=== PATIENT | female | born 1970 | race Caucasian/White ===

== ENCOUNTER 2017-01-21 13:48 | Emergency (ER) | payer MEDICAID ==
[2017-01-21] MEDS ORDERED: ORPHENADRINE CITRATE 60MG/2ML VIAL IM ONE (14:12)
[2017-01-21] MEDS ORDERED: KETOROLAC 30 MG/ML VIAL IM ONE (14:12)
--- NOTE | 2017-01-21 14:17 | Emergency Department Record ---
History of Present Illness - General Chief Complaint: Back Pain/Injury Stated Complaint: BACK PAIN, AND DETAL PAIN Time Seen by Provider: 01/21/17 14:03 Source: Patient Mode of Arrival: Ambulatory Limitations: No limitations - History of Present Illness Initial Comments: The patient is here due to having L lower back pain for many years and now the pain has worsened over the last 2 days. She has taken Percocet in the past which did help the pain but is now out and is between family doctors so she is out of chronic pain medicines. The pain is sharp and aching and much worse with any movement and walking. She denies any leg numbness, tingling, or weakness and also has no bowel or bladder issues. The pain does intermittently radiate down the back of the L leg but that has bee a chronic issue. The patient does state she has received facet blocks in the past. MD Complaint: Back pain Onset/Timin -: Days(s) Place: Home Radiation: Left leg Quality: Sharp Consistency: Constant Context: Other Associated Symptoms: Difficulty walking, Other Treatments Prior to Arrival: Other Treatment Prior to Arrival Comment:: seizure meds - Related Data Home Medications Medication Instructions Recorded Confirmed Last Taken Acyclovir 400 mg PO ASDIR 01/21/17 01/21/17 01/20/17 Albuterol Sulfate [Ventolin Hfa] 200 puff INH ASDIR 01/21/17 01/21/17 01/20/17 Cholecalciferol (Vitamin D3) 2,000 unit PO DAILY 01/21/17 01/21/17 01/19/17 [Vitamin D3] Cyclobenzaprine HCl [Flexeril] 5 mg PO TID 01/21/17 01/21/17 01/20/17 Diazepam [Valium] 5 mg PO DAILY 01/21/17 01/21/17 01/20/17 Montelukast Sodium [Singulair] 10 mg PO QHS 01/21/17 01/21/17 01/21/17 Propranolol HCl 80 mg PO DAILY 01/21/17 01/21/17 01/20/17 Venlafaxine HCl [Effexor] 75 mg PO DAILY 01/21/17 01/21/17 01/21/17 Zonisamide [Zonegran] 100 mg PO DAILY 01/21/17 01/21/17 01/21/17 Previous Rx's Medication Instructions Recorded Naproxen [Naprosyn] 250 mg PO BID #14 tablet 01/21/17 Allergies Allergy/AdvReac Type Severity Reaction Status Date / Time No Known Drug Allergies Allergy Verified 01/21/17 14:01 Travel Screening - Travel/Exposure Within Last 30 Days Have you traveled within the last 30 days?: No - Travel/Exposure Within Last Year Have you traveled outside the [place] in the last year?: No - Additonal Travel Details Have you been exposed to anyone with a communicable illness?: No - Travel Symptoms Symptom Screening: None Review of Systems Constitutional: Denies: Chills, Fever Eyes: Denies: Eye discharge ENT: Denies: Congestion Respiratory: Denies: Cough, Dyspnea Past Medical History - SOCIAL HISTORY Smoking Status: Current every day smoker Alcohol Use: None Drug Use: Occasional Drug Use Detail:: Marijuana - RESPIRATORY Hx Respiratory Disorders: Yes Hx Asthma: Yes - CARDIOVASCULAR Hx Cardio Disorders: No - NEURO Hx Neuro Disorders: Yes Hx Headaches: Yes Hx Seizures: Yes - GI Hx GI Disorders: Yes Hx Hiatal Hernia: Yes - Hx Genitourinary Disorders: No - ENDOCRINE Hx Endocrine Disorders: No - MUSCULOSKELETAL Hx Musculoskeletal Disorders: Yes - PSYCH Hx Psych Problems: Yes Hx Anxiety: Yes Hx Depression: Yes - HEMATOLOGY/ONCOLOGY Hx Hematology/Oncology Disorders: No Family Medical History Any Significant Family History?: No Physical Exam - General General Appearance: Alert, Oriented x3, Cooperative, No acute distress - Head Head exam: Atraumatic, Normocephalic, Normal inspection - Eye Eye exam: Normal appearance, PERRL - Neck Neck exam: Normal inspection, Full ROM. negative: Tenderness - Respiratory Respiratory exam: Normal lung sounds bilaterally. negative: Respiratory distress - Cardiovascular Cardiovascular Exam: Regular rate, Normal rhythm, Normal heart sounds - GI/Abdominal GI/Abdominal exam: Soft, Normal bowel sounds. negative: Tenderness - Extremities Extremities exam: Normal inspection, Full ROM, Normal capillary refill, Other ( Neg SLR bilaterally.). negative: Tenderness - Back Back exam: Reports: Paraspinal tenderness (L lower lumbar paraspinal area.). Denies: Normal inspection, CVA tenderness (R), Vertebral tenderness - Neurological Neurological exam: Alert, Normal gait, Oriented X3, Reflexes normal. negative: Abnormal gait, Altered, Motor sensory deficit (THe motor and sensory exams are 5 /5 and equal in the bilateral lower extremities.) - Skin Skin exam: negative: Rash Course Vital Signs 01/21/17 13:49 Temperature 97.7 F Pulse Rate 118 H Respiratory 16 Rate Blood Pressure 108/81 Pulse Ox 99 - Reevaluation(s) Reevaluation #1: The patient is doing much better at this time. Her pain is much improved and she is up walking and bending with no problems or issues. She is ready for home and is instructed to see her PCP next week for recheck. 01/21/17 15:11 Disposition Disposition: Discharge Clinical Impression: Chronic low back pain Qualifiers: Back pain laterality: unspecified Sciatica presence: unspecified whether sciatica present Qualified Code(s): M54.5 - Low back pain Disposition: Home, Self-Care Condition: (2) Stable Instructions: Chronic Back Pain (ED) Additional Instructions: Please take the Naprosyn as directed and continue your home Flexeril. Please see a family doctor next week for recheck. Return to the ER for any increased pain, fever, leg weakness, or any bowel or bladder issues. Prescriptions: Naproxen [Naprosyn] 250 mg PO BID #14 tablet Forms: Patient Portal Access Time of Disposition: 15:14 Quality - Quality Measures Quality Measures: N/A - Blood Pressure Screening View Details: Yes Does Patient Have Any of the Following: No Blood Pressure Classification: Pre-Hypertensive BP Reading Systolic Measurement: 124 Diastolic Measurement: 76 Screening for High Blood Pressure: < Normal BP, F/U Not Required > [[id number]]
== END 2017-01-21 15:24 | disposition home or self-care (01) ==
LOC: ER 13:48
DX: G89.29 Other chronic pain (principal); M54.5 Low back pain; M54.16 Radiculopathy, lumbar region; R26.2 Difficulty in walking, not elsewhere classified
CPT/HCPCS: 99283 ×2; 96372; J1885; J2360